=== PATIENT | male | born 1975 | race Caucasian/White ===

== ENCOUNTER 2023-04-15 16:42 | Emergency (ER) | payer BC, SELFPAY ==
[2023-04-15 16:44] VITALS: BP 142/99; PULSE 80; RESP 16; TEMP 36.6; O2SAT 99; BMI 31.0
--- NOTE | 2023-04-15 17:02 | EX.ED.DYSGE1 ---
HPI History of Present Illness Chief Complaint: Cellulitis Informant: patient Narrative Narrative: Patient presents with a little redness and swelling to his right elbow. He was seen by urgent care who sent him over here. This patient noticed a little bit of redness and swelling yesterday. If he rests his elbow down it is a little sore. But he has been moving his elbow [id number] all day and there is no pain with that. No fevers chills sweats nausea vomiting or any systemic symptoms. He did have an abrasion over there with little scab. He thinks he scraped the scab off a couple days ago. But there is been no drainage. No numbness tingling. He is not diabetic. He has no immunosuppression and he is on no medicines. No other complaints. PFSH PFSH Home Medications fluticasone propionate 50 mcg/actuation nasal spray,suspension (Allergy Relief (fluticasone)) 1 spray intranasal DAILY 10/15/21 [History Last Taken Unknown] doxycycline monohydrate 100 mg capsule 100 mg PO BID #20 CAPSULES 04/15/23 [Rx Last Taken Unknown] Allergy/AdvReac Type Severity Reaction Status Date / Time Penicillins Allergy Other Verified 04/15/23 16:46 Family History Other Cancer Social History Smoking Status: Never smoker ROS ROS ED Constitutional Constitutional ED: Denies chills, fever(s), subjective or sweats ENT ENT ED: Denies sore throat Cardiovascular Cardiovascular: Denies palpitations Respiratory/Chest Respiratory/Chest: Denies cough or dyspnea Gastrointestinal Gastrointestinal: Denies nausea or vomiting Musculoskeletal Musculoskeletal: Denies myalgias Integumentary Reports rash and other Details: History of present illness. Neurologic Neurologic: Denies paresthesias or weakness Endocrine Endocrinology: Denies polydipsia or polyuria Hematologic/Lymphatic Hematologic/Lymphatic: Denies lymphadenopathy Allergic/Immunologic Allergic/Immunologic ED: Denies urticaria EXAM Physical Exam Narrative Exam Narrative: Patient awake alert no acute duress. HEENT shows no sign of trauma. Mucous membranes are moist. Heart is regular. Lungs show unlabored breathing clear and normal saturation at 99% on room air showing no hypoxia. Extremities no new shows some erythema and swelling in the region of his right posterior elbow. No anterior swelling. His range of motion is full and excellent and without pain either passively or actively. There is 0 indication of intra-articular involvement. The olecranon bursa may have a small amount of swelling. But there is also a scab on the skin over this with surrounding erythema total circumference of about 5 or 6 cm. No lymphangitic streaking. It is mildly warm. Its not notably tender. Skin: See above. Const Vital Signs: 04/15/23 16:44 Temperature 97.9 F Temperature Source Temporal Pulse Rate 80 Respiratory Rate 16 Blood Pressure 142/99 H Blood Pressure Mean 113 Pulse Ox 99 Oxygen Delivery Method Room Air MDM MDM MDM Narrative Medical decision making narrative: Patient presents with some erythema and warmth of the elbow area. This is likely from a small abrasion. I explained that I would not take a needle and try to get fluid out of the olecranon bursa. There is only mild swelling. I be more likely to cause an infection then to improve him with this. There is no indication of joint involvement. There is no indication for x-rays as there is no acute trauma or indication that there may be a foreign body. Patient does have allergy to penicillins and possibly cephalosporins. For this reason we will use doxycycline. Warm compresses are appropriate. We discussed returning if he has more swelling, redness, nausea vomiting fevers or chills, or pain with motion of the elbow. Discharge Plan Triage Chief Complaint: Cellulitis ED Provider: Tyrell Hernandez Dx/Rx/DC Orders Clinical Impression: Olecranon bursitis of right elbow, Cellulitis of right elbow Instructions: Cellulitis Dc Prescriptions: New doxycycline monohydrate 100 mg capsule 100 mg PO BID Qty: 20 0RF No Action fluticasone propionate [Allergy Relief (fluticasone)] 50 mcg/actuation spray,suspension 1 spray intranasal DAILY Rx Instructions: administer into each nostril Primary Care Provider: Jeo Apodaca Referrals: Joe Apodaca DO [Primary Care Provider] - 3-5 Days Disposition Disposition: Home, Self Care
[2023-04-15] MEDS: Doxycycline 100 MG CAPSULE PO (17:18)
== END 2023-04-15 17:23 | disposition home or self-care (01) ==
LOC: ED 17:22
PROVIDERS: Emergency Provider Emergency Medicine; PCP Student in an Organized Health Care Education/Training Program; Visit Provider Emergency Medicine
DX: M70.21 Olecranon bursitis, right elbow (principal); L03.113 Cellulitis of right upper limb
CPT/HCPCS: 99282

== ENCOUNTER 2023-05-26 11:30 | Day surgery (SDC) | payer BC, SELFPAY ==
[2023-05-26] VITALS (7 sets, daily range): BP systolic 98–124; BP diastolic 62–92; PULSE 63–71; RESP 16; TEMP 36.2–36.9; O2SAT 92–97; BMI 29.1
[2023-05-26] MEDS: Lactated Ringers 1,000 ML 15 ML IV (12:30)
[2023-05-26] MEDS: Lidocaine 1%/Epi 1:100 (30ml) 30 ML VIAL (13:53)
[2023-05-26] MEDS: Bupivacaine Mpf 0.5% 30 ML VIAL (13:53)
[2023-05-26] MEDS: Ketorolac 30 MG/ML Syringe IV (14:48)
--- NOTE | 2023-05-26 16:17 | OP.PCM_ITS ---
Report of Operation Date of Procedure: 05/26/23 Description of Surgical Findings:: Preoperative diagnosis: Right septic olecranon bursitis Postoperative diagnosis: Right septic olecranon bursitis Procedure: Right septic olecranon bursectomy with removal of olecranon osteophyte Surgeon: Marco Cyr DO Ballistic Expert: Saida Rios PA-C Anesthesia: General endotracheal Anesthesiologist: Dr. Bowman Complications: None apparent Drains: None Estimated blood loss: 75 cc Urinary output: None IV fluids: 1 L crystalloid Specimens: Right olecranon bursa for aerobic and anaerobic cultures Surgical implants: None Surgical indications: This is a 47-year-old male seen in the outpatient setting after a traumatic right elbow pain, redness and swelling. He was started on oral Keflex with improvement of his erythema. He has significant olecranon bursitis. After completing his Keflex, swelling and redness returned. Keflex was restarted. We discussed due to the persistent bursitis, olecranon bursectomy and irrigation debridement was indicated. The risks, benefits, alternatives to the procedure reviewed with patient at length. Informed consent was obtained in the office. Risks of the procedure included but were not limited to bleeding, persistent infection, loss of life or limb, persistent swelling, persistent pain, neurovascular injury, DVT or PE, tendon injury, wound complications, stiffness. Description of procedure: Patient was seen in preoperative holding area. He was identified by name, medical record number, date of . The operative extremity was marked with a surgical marker. We confirmed informed consent with the patient and all questions were answered to her satisfaction. Anesthesia consent was also obtained by the anesthesia team prior to procedure. At time of his procedure, patient was brought to the operative suite and positioned supine on a standard operating table. 2 g Ancef was administered room time. General anesthesia was induced and laryngeal mask airway placed. All bony prominences well-padded. Patient was positioned in lateral decubitus position with the right side up. An axillary roll was placed. Fibular head was free on the down leg. All bony prominences were well-padded in the lateral decubitus position. We positioned the patient in the lateral decubitus position utilizing a beanbag. The operative extremity was brought over a radiolucent post. A well-padded pneumatic tourniquet was applied to right upper arm. We then prepped and draped the right upper extremity in normal, sterile orthopedic fashion after spending the bed 90 degrees. We performed a timeout with all parties in attendance in agreement with the side, site, operation to be performed. No concerns were voiced elected proceed with surgery. I elevated exsanguinated the right upper extremity with Esmarch bandage.. Tourniquet was inflated to 250 mmHg remained up for 15 minutes. I then planned a curvilinear incision over the olecranon curving slightly radial. Skin and subcutaneous tissue was sharply dissected with a 10 blade scalpel. No fluid was encountered after the bursal sac was entered. I then elevated the superficial bursal layer from the subcutaneous tissue. During dissection, overlying the tip of the olecranon the skin was very thin and dissection was carried through the skin. There was a 1 cm longitudinal incision which was closed at the end of the case uneventfully. Superficial layer of the bursal sac was excised after elevating it from the skin flaps both radially and ulnarly. I carried the bursal excision deeper down to the level of the ulnar periosteum and fascia. Bursa was sent for tissue culture. A olecranon spur was encountered and was excised with a rongeur. Bone wax was placed over the bone to prevent postoperative hematoma. Triceps fascia was left intact. Wound was then copiously irrigated normal saline solution. I anesthetized the skin flaps and surrounding tissues with 20 cc 1% lidocaine with epinephrine 1: 100,000 to assist with hemostasis. Tourniquet was then deflated. Hemostasis was excellent. Proximal to the incision I administered a tumescent field block with 10 cc 0.5% plain bupivacaine for longer lasting analgesia. I then utilized a 2-0 Vicryl to reduce space by reapproximating the subcutaneous tissue to both the triceps fascia and the ulnar periosteum. Dermis was reapproximated with 3-0 Vicryl suture. Skin was finally reapproximated with horizontal mattress 3-0 nylon suture. Sterile compression dressing was then applied after the limb was cleansed. A well-padded posterior elbow fiberglass splint was then applied with the wrist free in 90 degrees of elbow flexion. Patient was then repositioned in the supine position. See it was safely extubated in the operative suite and transferred to her gurney and subsequently to PACU in stable condition. Need for skilled lead dental assistant: Saida Rios PA-C was critical to the outcome of the case. During the course of the procedure the physician lead dental assistant played a vital role. Her intimate knowledge of my steps in the procedure aided in safe and expedient completion of the procedure. The PA played a vital role in positioning particularly in obtaining the appropriate positioning. The PA was also vital in the retraction of soft tissues during the exposure and protecting vital structures. She also played a vital role in closure and splint application with my direct supervision. Post Operative Plan: Weightbearing: Nonweightbearing operative extremity Antibiotics: Ancef 2 g x 1 dose preoperatively, Keflex x14 days. DVT prophylaxis: Early ambulation, 81 mg aspirin starting twice daily postop day 1 Slater: None Dressing: Maintain splint until follow-up keep in a clean, dry and intact. X-Rays: None Pain Medication: Oxycodone prescription provided Follow-up: 2 week post-operatively with me in the office for wound check
--- NOTE | 2023-05-26 16:17 | DCINST_ITS ---
Discharge Instructions Follow Up Care Test Results: Test results from this visit will be discussed in further detail at your follow- up appointment, if applicable. Discharge Plan Admission Primary Reason for Your Visit: Right olecranon bursectomy Attending Provider: Marco Cyr Primary Care Provider: Joe Apodaca Instructions Additional Instructions / Restrictions: Follow preprinted instructions from your surgeons office. Discharge Orders/Prescriptions Prescriptions: New oxycodone-acetaminophen 5-325 mg Tablet 1 - 2 tab PO Q6H PRN PRN (Reason: Mod/Severe (pain scale 6-10)) 7 Days Qty: 28 0RF cephalexin 500 mg capsule 500 mg PO TID 14 Days Qty: 42 0RF No Action multivitamin [Daily Multi-Vitamin] Tablet 1 tab PO DAILY Referrals / Follow Up: Joe Apodaca DO [Primary Care Provider] - Marco Cyr DO [Med Staff - Active Staff] - Disposition Disposition (needs filled in before D/C Order can be placed): Home, Self Care
[2023-05-26] MEDS: Oxycodone/Apap 5/325 Tablet PO (16:35)
== END 2023-05-26 17:15 | disposition home or self-care (01) ==
LOC: SDC 11:32 → AC 11:32
PROVIDERS: PCP Student in an Organized Health Care Education/Training Program; Referring Provider Student in an Organized Health Care Education/Training Program; Visit Provider Student in an Organized Health Care Education/Training Program
PROC: (CPT 24105; principal; 2023-05-26 13:45)
DX: M70.21 Olecranon bursitis, right elbow (principal); M19.021 Primary osteoarthritis, right elbow; M25.721 Osteophyte, right elbow; E66.8 Other obesity; Z68.30 Body mass index [BMI] 30.0-30.9, adult
CPT/HCPCS: 24105; 01710; 87070; 87075; 87205; J7120; J2405

== ENCOUNTER 2023-07-02 05:39 | Emergency (ER) | payer BC, SELFPAY ==
[2023-07-02 05:41] VITALS: BP 147/91; PULSE 83; RESP 16; TEMP 36.6; O2SAT 96; BMI 30.4
--- NOTE | 2023-07-02 06:01 | EDS_ITS ---
HPI History of Present Illness Chief Complaint: Cellulitis Informant: patient and spouse/S.O. Narrative Narrative: Presents increasing swelling redness to the left cheek. Noted initially 3 to 4 days ago with 1 small spot. Seen urgent care 2 days ago placed on Keflex and Bactrim. He has gotten worse. Subjective fevers. Is not a diabetic. Reports he did take a needle to this however nothing to drain. He had a right olecranon bursitis infection in April, he follow-up with orthopedics had surgery a month ago. Allergy to penicillin. [facility] Medical History Alcohol use Gastric reflux Sleep apnea Wears glasses Home Medications multivitamin (Daily Multi-Vitamin tablet) 1 tab PO DAILY 05/23/23 [History Last Taken Unknown] cephalexin 500 mg capsule 500 mg PO Q6H 07/02/23 [History Last Taken Unknown] clindamycin HCl 150 mg capsule 300 mg (2 x 150 mg) PO Q6H #80 caps 07/02/23 [Rx Last Taken Unknown] doxycycline monohydrate 100 mg capsule 100 mg PO BID #20 CAPSULES 07/02/23 [Rx Last Taken Unknown] sulfamethoxazole 800 mg-trimethoprim 160 mg tablet (Bactrim DS) 1 tab PO BID 07/02/23 [History Last Taken Unknown] Allergy/AdvReac Type Severity Reaction Status Date / Time Penicillins Allergy Other Verified 07/02/23 05:40 Family History Other Cancer Surgical History History of colonoscopy Social History Smoking Status: Never smoker ROS ROS ED Constitutional Constitutional ED: Denies chills, fever(s) or sweats Eyes Eyes: Denies change in vision ENT ENT ED: Reports other Details: Left facial swelling. ; Denies dysphagia or sore throat Cardiovascular Cardiovascular: Denies chest pain, leg edema, palpitations or racing heartbeat Respiratory/Chest Respiratory/Chest: Denies cough, dyspnea or dyspnea on exertion Gastrointestinal Gastrointestinal: Denies abdominal pain, diarrhea, nausea or vomiting Genitourinary Genitourinary ED: Denies dysuria, hematuria or urinary frequency Musculoskeletal Musculoskeletal: Denies back pain, extremity pain or neck pain Integumentary Denies rash or wounds Neurologic Neurologic: Denies headache(s), paresthesias or weakness EXAM Physical Exam Const Vital Signs: 07/02/23 05:41 07/02/23 06:07 Temperature 98 F 98 F Temperature Source Temporal Temporal Pulse Rate 83 83 Respiratory Rate 16 16 Blood Pressure 147/91 H 147/91 H Blood Pressure Mean 109 109 Pulse Ox 96 96 Positive well nourished and well developed General Appearance ED: well developed and NAD HEENT Reports moist mucous membranes HEENT Narrative: Left maxillary 3 cm induration with erythema, no fluctuance, there is swelling under the lower eye. No eye involvement. normocephalic and atraumatic Eyes PERRL, EOMs intact bilaterally and conjunctivae normal General Eye ED: Yes normal appearance of both eyes Neck no lymphadenopathy and supple General: Negative for tenderness Chest Wall Chest: Negative for tenderness Resp normal respiratory effort and normal air movement Effort and Inspection: symmetric chest movement; Negative for respiratory distress Cardio regular rate, regular rhythm and no murmurs Peripheral Pulses: pulses 2+ throughout GI normal to inspection, nondistended, normoactive bowel sounds and non-tender Palpation: Negative for guarding or rebound tenderness present Back/Spine no CVA tenderness and no thoracic nor lumbar tenderness Extremity normal to inspection General Extremety ED: Negative for edema or tenderness General Extremity: Negative for edema Neuro oriented x3 and no sensory deficits noted Sensorium / Orientation: awake and alert Skin no rashes or lesions noted and no wounds MDM MDM MDM Narrative Medical decision making narrative: Interventions / MDM: Differential diagnosis: Facial cellulitis Diagnosis considered but do not suspect: Abscess however ultrasound no large fluid collection My EKG interpretation: N/A Imaging independently reviewed and interpreted by myself: N/A External documents reviewed: N/A Test considered but not ordered:N/A ED course: Vital signs stable afebrile in the ED. Nontoxic. Currently on 2-day course of antibiotics and states is worsening. Labs will be drawn, due to allergy to penicillin, will dose with clindamycin IV. 0630: I placed a bedside ultrasound over the induration, all fibrous tissues. 1 small minimal pocket potential fluid however not amenable to needle aspiration. Labs are pending clindamycin currently being infused. White count seven-point hemoglobin teen. CRP 18 normal ESR. Creatinine 1.5 no old for comparison. He is known 3 of this. He has been on Bactrim for the last couple days. Discussed with patient we will hold Bactrim we will start doxycycline and clindamycin. He has appointment at this weekend with his healthcare provider for wound check. Return precaution discussed. All questions were answered. Re-evaluation: stable Disposition discussed with patient/family/significant other: Patient and significant other Case discussed with consulting clinician: N/A This note was generated with [employer] dictation software. It may contain incorrect words, spelling, and punctuation that were not noted in checking the note before signing. Lab Data Attestation: I reviewed the patient's lab results. Labs: Laboratory Results - last 24 hr 07/02/23 06:25 WBC 7.3 RBC 5.32 Hgb 15.3 Hct 45.1 MCV 84.8 MCH 28.8 MCHC 33.9 RDW Std Deviation 38.5 RDW Coeff of Francesca 12.5 Plt Count 220 MPV 10.1 Immature Gran % (Auto) 0.400 Neut % (Auto) 68.0 Lymph % (Auto) 15.9 L [place] % (Auto) 9.9 Eos % (Auto) 5.1 H Baso % (Auto) 0.7 Absolute Neuts (auto) 5.0 Absolute Lymphs (auto) 1.16 Nucleated RBC % 0 ESR 8 Sodium 136 Potassium 3.9 Chloride 103 Carbon Dioxide 29.0 Anion Gap 4 L BUN 16 Creatinine 1.54 H Estim Creat Clear Calc 57.37 Est GFR (MDRD) Af Amer 62 Est GFR (MDRD) Non-Af 52 L BUN/Creatinine Ratio 10.4 Glucose 131 H Calcium 8.9 C-React Prot Ext Range 18.50 H Discharge Plan Triage Chief Complaint: Cellulitis ED Provider: Luis Antonio Avila Dx/Rx/DC Orders Clinical Impression: Cellulitis of face, Renal insufficiency Instructions: ED Cellulitis, Facial, ED Renal Insufficiency Prescriptions: New doxycycline monohydrate 100 mg capsule 100 mg PO BID Qty: 20 0RF clindamycin HCl 150 mg capsule 300 mg PO Q6H Qty: 80 0RF No Action sulfamethoxazole-trimethoprim [Bactrim DS] 800-160 mg tablet 1 tab PO BID cephalexin 500 mg capsule 500 mg PO Q6H multivitamin [Daily Multi-Vitamin] Tablet 1 tab PO DAILY Primary Care Provider: Joe Apodaca Referrals: Joe Apodaca, DO [Primary Care Provider] - 3-5 Days Activity Restrictions/Additional Instructions: Creatinine 1.5. White count normal at 7.3. Stop your Keflex and Bactrim. Take clindamycin and doxycycline as prescribed. Drink plenty of fluids at home. Keep your follow-up with your doctor. Return if worsening symptoms. Disposition Disposition: Home, Self Care
[2023-07-02 06:07] VITALS: BP 147/91; PULSE 83; RESP 16; TEMP 36.6; O2SAT 96
[2023-07-02] MEDS: Clindamycin 600 MG/50 ML BAG 100 MG IV (06:21)
[2023-07-02 06:31] LABS: Absolute Lymphocyte Count 1.16 X10^3/uL (0.83-4.51); Basophil# 0.05 X10^3/uL; Basophil% 0.7 % (0-1); Eosinophil# 0.37 X10^3/uL; Eosinophils% 5.1 % (0-5); Hematocrit 45.1 % (40-54); Hemoglobin 15.3 g/dL (13.0-16.5); Lymphocyte # 1.16 X10^3/ul (0.83-4.51); Lymphocyte % 15.9 % (19-41); Mean Corp Hgb Conc 33.9 g/dL (32-36); Mean Corpuscular Hgb 28.8 pg (27.0-32.0); Mean Corpuscular Volume 84.8 fL (80-94); Mean Platelet Vol. 10.1 fl (6.2-12.0); Monocyte# 0.72 X10^3/uL; Monocyte% 9.9 % (0-10); NRBC Flagged by Analyzer 0 % (0-5); Neutrophil # 4.96 X10^3/uL (2.7-7.7); Platelet Count 220 K/mm3 (150-450); RBC Distribution Width CV 12.5 % (11.6-14.6); RBC Distribution Width SD 38.5 fl (35.1-43.9); Red Blood Count 5.32 M/mm3 (4.6-6.2); White Blood Count 7.3 K/mm3 (4.4-11.0)
[2023-07-02 06:41] LABS: Erythrocyte Sedimentation Rate 8 mm/hr (0-20)
[2023-07-02 06:47] LABS: Anion Gap 4 (5-15); BUN 16 mg/dL (7-18); BUN/Creat Ratio 10.4 RATIO (10-20); Calcium,Total 8.9 mg/dL (8.5-10.1); Chloride 103 mmol/L (98-107); Creatinine, Serum 1.54 mg/dL (0.70-1.30); EST Glomerular Filtration Rate 52 mL/min (>60); Est Glom Filt Rate - Afr Amer 62 mL/min (>60); Estimated Creatinine Clearance 57.37 ml/min; Glucose 131 mg/dL (74-106); Potassium 3.9 mmol/L (3.5-5.1); Sodium Level 136 mmol/L (136-145)
[2023-07-02 08:21] VITALS: BP 143/79; PULSE 82; RESP 15; O2SAT 98
== END 2023-07-02 08:22 | disposition home or self-care (01) ==
PROVIDERS: Emergency Provider Emergency Medicine; PCP Student in an Organized Health Care Education/Training Program; Visit Provider Emergency Medicine
DX: L03.211 Cellulitis of face (principal); N28.9 Disorder of kidney and ureter, unspecified
CPT/HCPCS: 80048; 85025; 85652; 86140; 96365; 99283; J7050; A4216